=== PATIENT | female | born 1995 | race Caucasian/White ===

== ENCOUNTER 2016-07-19 19:54 | Emergency (ER) | payer MEDICARE ==
[~2016-07-19] VITALS: Ht 160 cm; Wt 59.0 kg
[~2016-07-19 19:54] MED LIST: AMOX500C2 PO; ARPZ10T; ARPZ10T PO; BCP; CEPH500C PO; HYDR-3729 PO; IBUP-1773 PO; METH0.2T42 PO; NITR-65 PO; NORG1TAB15; NORG1TAB15 PO; ONDA-42 SL; SULF-222 PO; TETRACYCLINE PO
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
[2016-07-19] MEDS ORDERED: MEDR150D8 IM (20:02)
[2016-07-19] MEDS ORDERED: ACETAMINOPHEN 500 MG TAB (TYLENOL) PO ONE (20:15)
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
[2016-07-19 20:53] VITALS: BP 118/79
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
== END 2016-07-19 20:53 | disposition home or self-care (01) ==
LOC: EDUNIT# 19:54 → ER 19:55
DX: S13.4XXA Sprain of ligaments of cervical spine, initial encounter (principal); Y04.0XXA Assault by unarmed brawl or fight, initial encounter; Y99.8 Other external cause status
CPT/HCPCS: 70450; 71020; 72125; 87804

== ENCOUNTER → 2018-09-21 | Outpatient (CLI) | payer MEDICARE ==
[~2018-09-21] MED LIST changes: +MEDR150D8 IM
--- NOTE | 2018-09-21 14:50 | Diagnostic Imaging Report ---
PROCEDURE: CT abdomen and pelvis without contrast. TECHNIQUE: Multiple contiguous axial images were obtained through the abdomen and pelvis without the use of intravenous contrast. Auto Exposure Controls were utilized during the CT exam to meet ALARA standards for radiation dose reduction. INDICATION: Hematuria. Right lower quadrant abdominal pain. COMPARISON: None FINDINGS: Included portions of the lung bases are clear. CT ABDOMEN: There is subtle punctate nonobstructive right renal calculus (image #31, series 5). No other renal or ureter calculi are seen on either side. There is no hydroureteronephrosis or other evidence of obstruction. No focal renal mass is identified on this noncontrast exam. The adrenal glands, spleen, pancreas, and liver have an unremarkable noncontrast CT appearance. There is no loculated fluid collection, free fluid, nor free air within the abdomen. No abnormal mesenteric or retroperitoneal adenopathy is seen. Small bowel loops are nondistended. Normal appendix is identified. Bony structures show no acute abnormalities. CT PELVIS: Urinary bladder is unopacified. No catheter are seen within the urinary bladder. There is no loculated fluid collection, free fluid, nor free air within the pelvis. No abnormal adenopathy is identified. Bony structures show no acute abnormalities. IMPRESSION: 1. Single punctate nonobstructive right renal calculus. 2. No ureteral calculi, hydroureteronephrosis, or other evidence of obstruction is seen on either side. 3. Normal appendix. Dictated by: Dictated on workstation # [id number]
== END ==
LOC: RAD 12:14
PROVIDERS: ATTEND Urology
DX: N20.0 Calculus of kidney (principal)
CPT/HCPCS: 74176

== ENCOUNTER 2021-01-12 18:55 | Emergency (ER) | payer MEDICARE ==
[~2021-01-12] VITALS: Ht 162.6 cm; Wt 84.3 kg
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
[2021-01-12 19:22] LABS: BILIRUBIN,URINE NEGATIVE (NEGATIVE); CLARITY,URINE CLEAR; COLOR,URINE YELLOW; GLUCOSE, URINE (UA) NEGATIVE (NEGATIVE); KETONES,URINE NEGATIVE (NEGATIVE); LEUKOCYTE ESTERASE ,URINE NEGATIVE (NEGATIVE); NITRITE,URINE NEGATIVE (NEGATIVE); PROTEIN,URINE NEGATIVE (NEGATIVE)
[2021-01-12] MEDS ORDERED: NS IV 500 ML 500 ML IV ONE (19:30)
[2021-01-12] MEDS ORDERED: KETOROLAC 30 MG/ML VIAL IVP ONE (19:30)
[2021-01-12 19:43] LABS: BACTERIA,URINE TRACE /HPF; SQUAMOUS EPITHELIAL CELL,UR 0-2 /HPF; WBC,URINE 0-2 /HPF
[2021-01-12 19:44] LABS: BASOPHILS # (AUTO) 0.1 10^3/uL (0.0-0.1); BASOPHILS % (AUTO) 1 % (0-10); EOSINOPHILS # (AUTO) 0.1 10^3/uL (0.0-0.3); EOSINOPHILS % (AUTO) 1 % (0-10); HEMATOCRIT 40 % (35-52); HEMOGLOBIN 12.8 g/dL (11.5-16.0); LYMPHOCYTES % (AUTO) 24 % (12-44); MEAN CORPUSCULAR HEMOGLOBIN 28 pg (25-34); MEAN CORPUSCULAR HGB CONC 32 g/dL (32-36); MEAN CORPUSCULAR VOLUME 86 fL (80-99); MONOCYTES # (AUTO) 0.5 10^3/uL (0.0-1.0); MONOCYTES % (AUTO) 4 % (0-12); NEUTROPHILS # (AUTO) 8.6 10^3/uL (1.8-7.8); NEUTROPHILS % (AUTO) 70 % (42-75); PLATELET COUNT 363 10^3/uL (130-400); WHITE BLOOD COUNT 12.3 10^3/uL (4.3-11.0)
[2021-01-12 20:08] LABS: ALBUMIN 4.1 GM/DL (3.2-4.5); CHLORIDE 105 MMOL/L (98-107); POTASSIUM 3.7 MMOL/L (3.6-5.0); SODIUM 141 MMOL/L (135-145)
[2021-01-12 20:09] LABS: CALCIUM 9.3 MG/DL (8.5-10.1)
[2021-01-12 20:11] LABS: GLUCOSE 106 MG/DL (70-105)
[2021-01-12 20:12] LABS: BILIRUBIN,TOTAL 0.2 MG/DL (0.1-1.0); CARBON DIOXIDE 26 MMOL/L (21-32)
[2021-01-12 20:14] LABS: ALKALINE PHOSPHATASE 115 U/L (40-136); CREATININE SERUM 0.78 MG/DL (0.60-1.30); GFR ESTIMATED > 60
[2021-01-12 20:15] LABS: BUN/CREATININE RATIO 18
[2021-01-12 20:17] LABS: ALANINE AMINOTRANSFERASE 37 U/L (0-55)
[2021-01-12 20:35] VITALS: BP 102/54
[2021-01-12] MEDS ORDERED: NAPR-1071 PO (20:36)
== END 2021-01-12 20:41 | disposition home or self-care (01) ==
LOC: EDUNIT# 18:55 → ER 18:58
DX: R10.31 Right lower quadrant pain (principal)
CPT/HCPCS: 36415; 80053; 81000; 84703; 85025; 86141